=== PATIENT | male | born 2000 | race Caucasian/White ===

== ENCOUNTER 2022-02-16 13:10 | Emergency (ER) | payer MEDICAID, SELFPAY ==
[2022-02-16 13:16] VITALS: BP 133/67; PULSE 62; RESP 20; TEMP 37.2; O2SAT 100
[2022-02-16] MEDS: Fluorescein STRIPS 100/BOX 1 MG (13:59)
[2022-02-16] MEDS: Balanced Salt Solution 15 ML BTL (13:59)
[2022-02-16] MEDS: Tetracaine 0.5% 4 ML BTL (14:00)
--- NOTE | 2022-02-16 14:06 | ED.GENADUL_ITS ---
Discharge Plan Disposition Patient Disposition: HOME Condition: Stable Discharge Details Clinical Impression: Corneal abrasion, left, Foreign body of left eye Primary Care Provider: Unknown,Unknown ED Provider: Janette Avilez Home Meds and New Rx's Prescriptions: Continued dextroamphetamine-amphetamine [Adderall XR] 25 mg capsule,extended release 24hr 25 mg PO QAM MDD 25 Qty: 30 0RF dextroamphetamine-amphetamine [Adderall] 5 mg tablet 5 mg PO DAILY MDD 5 Qty: 30 0RF Discharge Instructions Instructions: Corneal Abrasion (ED) Additional Instructions: A small foreign body was removed from your left eye. A corneal abrasion was not ed in your left eye at the site where your foreign body was removed. You are being sent home with erythromycin ointment to apply to your left eye 4 times daily for the next 5-7 days. Follow-up with [facility] for reevaluation in the next 1-2 weeks. Return immediately to the emergency department if you develop any worsening or new concerning symptoms. Referrals: [facility] [Outside] Discharge Data Discharge Date/Time-TO BE ENTERED AT DEPARTURE: 02/16/22 14:19 Discharge Physician: Janette Avilez Medical Decision Making 21-year-old male presents with foreign body sensation and blurry vision in the left eye after a piece of metal got into his eye at work 3 weeks ago. Patient appears comfortable and nontoxic. He has a 1 mm black speck noted w ithin the cornea of his left eye at approximately 9:00. This was removed with an 18-gauge needle and cotton swab tip and his eye was irrigated with balanced salt solution. Fluorescein staining revealed a corneal abrasion at the site of previous foreign body. Additional inspection of his eye including eyelid eversion negative for obvious foreign body. Erythromycin ointment applied to his left eye. His tetanus is up-to-date. He was advised to follow-up with [facility] for reevaluation. Usual and customary return precautions given prior to discharge. Medical Records Medical records reviewed: Yes I reviewed the patient's medical records. HPI General Mode of arrival: ambulatory . Date/Time Provider Initiated Documentation: 02/16/22 13:12 . Limitations to Documentation: no limitations . Information obtained by: patient . HPI Narrative: Patient is a 21-year-old male who presents with foreign body sensation and blurry vision in the left eye for the past 3 weeks. Patient states he works got a piece of metal in his eye at work 3 weeks ago. He states he has days where it does not bother him as much but states it has been worse since this morning. He does not wear contacts. He states his tetanus is up-to-date. Related Data Home Medications Medication Instructions Recorded Confirmed dextroamphetamine-amphetamine 5 mg 5 mg PO DAILY #30 tabs 10/01/21 02/16/22 tablet (Adderall) dextroamphetamine-amphetamine ER 25 mg PO QAM #30 caps 10/01/21 02/16/22 25 mg 24hr capsule,extend release (Adderall XR) Previous Rx's Medication Instructions Recorded dextroamphetamine-amphetamine 5 mg 5 mg PO DAILY #30 tabs 10/01/21 tablet (Adderall) dextroamphetamine-amphetamine ER 25 mg PO QAM #30 caps 10/01/21 25 mg 24hr capsule,extend release (Adderall XR) Allergies Allergy/AdvReac Type Severity Reaction Status Date / Time No Known Allergies Allergy Verified 04/24/21 14:02 General Stated Complaint: EyeProblem LEEANNA: 4 Review of Systems All systems reviewed & are unremarkable except as noted in HPI and below Constitutional Constitutional: Reports as per HPI, Denies chills and Denies fever(s) Eyes Eyes: Reports blurry vision, Reports irritation and Reports other (foreign body sensation) ENT Ears, Nose, Mouth, and Throat: Denies dizziness, Denies sore throat and Denies throat swelling Cardiovascular Cardiovascular: Denies chest pain and Denies dyspnea Respiratory Respiratory: Denies cough and Denies dyspnea Gastrointestinal Gastrointestinal: Denies abdominal pain, Denies diarrhea and Denies vomiting Genitourinary Genitourinary: Denies hematuria and Denies dysuria Musculoskeletal Musculoskeletal: Denies back pain and Denies numbness Integumentary/Breasts Skin/Breast: Denies lesions and Denies rash Neurologic Neurologic: Denies dizziness, Denies localized weakness and Denies numbness Allergic/Immunologic Allergic/Immunologic: Denies throat swelling PFSH All Active Problems (Updated 02/16/22 @ 14:10 by Janette Avilez DO) Corneal abrasion, left (Acute) Foreign body of left eye (Acute) Elevated blood pressure reading (Acute) Healthy adult male (Acute) Headache (Acute) probable migraine iwth vomiting- sleep helps it - occur about once or twice amonth Healthy adolescent (Acute) ADHD (Acute) Cleft lip (Acute) sp surgery Medical History (Updated 02/16/22 @ 14:10 by Janette Avilez DO) Full term Speech delay Surgical History H/O bone graft Bone graft from hip to repair alveolar and roof of mouth History of circumcision History of oral surgery Cleft palate repair Dr. Gilbert FAC 2009 Cleft lip repair infant Revision cleft lip repair 2012 Family History Father Age: 58 Depression Anxiety Asthma Mother Age: 40 Depression Anxiety ADHD Brother Age: 20 ADHD Sister Age: 17 ADHD Social History Smoking/Tobacco Use Status: Never Second Hand Exposure: Yes (Family smokes at home) Smoking risk assessment performed?: Yes Drug use: Socially Substance use type: marijuana Household members: family Pets and animals: Yes Pets and animals: cat(s) and dog(s) Sexually active: No Exam Const General: cooperative, healthy appearing and no acute distress Orientation: alert, awake and oriented x3 HENMT Head: normal to inspection Ears: hearing grossly normal bilaterally and external ears normal Eyes General: appearance normal, both eyes and all related structures Eyes/upper lids images: 1. 1 mm black speck noted within the cornea at approximately 9 o'clock. Fluor escein staining revealed uptake at the site of the foreign body. No additional foreign body noted with full inspection including eyelid eversion. Neck Neck: normal visual inspection Resp Effort & Inspection: normal respiratory effort and able to speak in complete sentences Cardio Rate: regular rate Skin General skin exam: no rashes or lesions noted Neuro General: patient alert, patient awake and patient oriented x3 Motor: muscle tone normal throughout Extrem General: normal to inspection and full ROM Psych Appearance: grossly normal Affect: normal affect Course Vital Signs Vital signs: Vital Signs Temperature 99.0 F 02/16/22 13:16 Pulse 62 02/16/22 13:16 Respiratory Rate 20 02/16/22 13:16 Blood Pressure 133/67 02/16/22 13:16 Pulse Oximetry 100 07/16/22 13:16 Temperature 99.0 F 02/16/22 13:16 Temperature Source Temporal Artery Scan 02/16/22 13:16 Pulse 62 02/16/22 13:16 Respiratory Rate 20 02/16/22 13:16 Respiratory Effort 02/16/22 13:20 Blood Pressure 133/67 02/16/22 13:16 Blood Pressure Position Sitting 02/16/22 13:16 Pulse Oximetry 100 02/16/22 13:16 Oxygen Delivery Method Room Air 02/16/22 13:16 Oxygen Flow Rate 0 02/16/22 13:16 Pain Level 0 02/16/22 13:16
[2022-02-16] MEDS: Erythromycin Ophth Oint 3.5 GM TUBE OU (14:11)
== END 2022-02-16 14:19 | disposition home or self-care (01) ==
PROVIDERS: Emergency Provider Physician Assistant
DX: T15.02XA Foreign body in cornea, left eye, initial encounter (principal); X58.XXXA Exposure to other specified factors, initial encounter
CPT/HCPCS: 65220

== ENCOUNTER 2025-07-24 19:13 | Emergency (ER) | payer MEDICAID, SELFPAY ==
[2025-07-24 19:17] VITALS: BP 132/78; PULSE 70; RESP 16; TEMP 37.1; O2SAT 96
== END 2025-07-24 21:00 ==
DX: Z53.21 Procedure and treatment not carried out due to patient leaving prior to being seen by health care provider (principal)

== ENCOUNTER 2025-07-28 15:45 | Emergency (ER) | payer MEDICAID, SELFPAY ==
[2025-07-28 15:53] VITALS: BP 169/94; PULSE 66; RESP 16; TEMP 37.4; O2SAT 96
--- NOTE | 2025-07-28 16:03 | ED.GENADUL_ITS ---
Discharge Plan Disposition Patient Disposition: Home Condition: Stable Discharge Details Clinical Impression: Dental infection Primary Care Provider: Unknown,Unknown ED Provider: Weston Colmenares Home Meds and New Rx's Prescriptions: New amoxicillin-pot clavulanate 875-125 mg tablet 1 tab PO BID 14 Days Qty: 28 0RF ketorolac 10 mg tablet 10 mg PO QID 5 Days Qty: 20 0RF Rx Instructions: maximum total duration of 5 days from all oral, intranasal, or parenteral formulations chlorhexidine gluconate 0.12 % mouthwash 15 ml mucous membrane BID Qty: 1893 0RF Continued chlorhexidine gluconate 0.12 % mouthwash 15 ml buccal BID Qty: 473 0RF dextroamphetamine-amphetamine [Adderall XR] 25 mg capsule,extended release 24hr 25 mg PO QAM MDD 25 Qty: 30 0RF dextroamphetamine-amphetamine [Adderall] 5 mg tablet 5 mg PO DAILY MDD 5 Qty: 30 0RF Discharge Instructions Instructions: Ketorolac (Systemic), Amoxicillin and Clavulanate, Chlorhexidine Gluconate (Oral), Dental Pain ED Additional Instructions: You were seen in the emergency department for your severe dental decay and likely mild dental infection starting in your gums at the apex of your tooth. I have sent prescriptions for Augmentin as well as a stronger anti-inflammatory medicine called Toradol as well as chlorhexidine mouth rinse to [facility] in [place], you need to take 1000 mg of Tylenol 4 times a day as well, follow-up with a dentist to soon as possible, return for any inability to open close your jaw, excessive drooling, loss of voice. Stand Alone Forms: Portal Information Discharge Data Discharge Date/Time-TO BE ENTERED AT DEPARTURE: 07/28/25 16:28 HPI General Date/Time Provider Initiated Documentation: 07/28/25 16:03 . HPI Narrative: 25 year-old male presents to ED today by POV/ambulating with a chief complaint of left upper tooth pain with poor dentition with upcoming dentist appointment in August with onset of past few days. Quality described as throbbing, no radiation to trismus, vocal changes, drooling, neck pain, difficulty swallowing, fever. Severity is described as moderate. Palliating factors include nothing specific beyond OTCs. Provoking factors include nothing specific. Patient not anticoagulated. Related Data Home Medications ?Medication ?Instructions ?Recorded ?Confirmed dextroamphetamine-amphetamine 5 mg 5 mg PO DAILY #30 t abs 10/01/21 07/24/25 tablet (Adderall) dextroamphetamine-amphetamine ER 25 mg PO QAM #30 caps 10/01/21 07/24/25 25 mg 24hr capsule,extend release (Adderall XR) chlorhexidine gluconate 0.12 % 15 ml buccal BID #473 m L 03/24/25 07/24/25 mouthwash amoxicillin 875 mg-potassium 1 tab PO BID 14 days #28 tabs 07/28/25 clavulanate 125 mg tablet chlorhexidine gluconate 0.12 % 15 ml mucous membrane B ID #[id number] mL 07/28/25 mouthwash ketorolac 10 mg tablet 10 mg PO QID 5 days #20 tabs 07/28/25 Previous Rx's ?Medication ?Instructions ?Recorded dextroamphetamine-amphetamine 5 mg 5 mg PO DAILY #30 t abs 10/01/21 tablet (Adderall) dextroamphetamine-amphetamine ER 25 mg PO QAM #30 caps 10/01/21 25 mg 24hr capsule,extend release (Adderall XR) chlorhexidine gluconate 0.12 % 15 ml buccal BID #473 m L 03/24/25 mouthwash amoxicillin 875 mg-potassium 1 tab PO BID 14 days #28 tabs 07/28/25 clavulanate 125 mg tablet chlorhexidine gluconate 0.12 % 15 ml mucous membrane B ID #[id number] mL 07/28/25 mouthwash ketorolac 10 mg tablet 10 mg PO QID 5 days #20 tabs 07/28/25 Allergies Allergy/AdvReac Type Severity Reaction Status Date / Time No Known Allergies Allergy Verified 07/24/25 19:23 General Stated Complaint: DentalOral LEEANNA: 4 Review of Systems All systems reviewed & are unremarkable except as noted in HPI and below Exam Narrative Exam Narrative: GENERAL APPEARANCE: Well-nourished, non-toxic, awake and alert, atraumatic, mild acute distress. SKIN: Warm, pink, dry, intact, without rashes/lesions/ulcerations. HEAD: Normocephalic, atraumatic, normal hair distribution for gender/age. EYES: Normal conjunctiva, no exudates on lids/lashes. ENT: Nares patent, no circumoral cyanosis, no facial swelling, diffuse severe dental decay entire mouth, no obvious gingival swelling or fluctuant abscess, no trismus, no excessive drooling, managing secretions well no vocal changes NECK: Supple, trachea midline, painless cervical ROM. LUNGS/CHEST: Non-labored respirations, normal A/P diameter, symmetrical expansion, no chest wall deformity HEART (CV/PV): No peripheral edema, no JVD. ABDOMEN: Soft, non-distended, no guarding. MSK: Normal ROM, no swelling/deformity to bilateral UEs or LEs, moving all extremities without weakness, no cyanosis, spine midline without tenderness, normal curvature. NEURO: Mental Status AAOx4 - alert to person, place, time, events No facial droop, no forehead involvement. Motor: No focal weakness Sensory: sensation intact to light touch globally. Gait normal: patient ambulated without ataxia into ED room. PSYCH: euthymic, cooperative, pleasant, appropriate speech Course Vital Signs Vital signs: Vital Signs Temperature 37.4 C 07/28/25 15:53 Pulse 66 07/28/25 15:53 Respiratory Rate 16 07/28/25 15:53 Blood Pressure 169/94 H 07/28/25 15:53 Pulse Oximetry 96 07/28/25 15:53 Temperature 37.4 C 07/28/25 15:53 Temperature Source Tympanic 07/28/25 15:53 Pulse 66 07/28/25 15:53 Respiratory Rate 16 07/28/25 15:53 Blood Pressure 169/94 H 07/28/25 15:53 Blood Pressure Position Sitting 07/28/25 15:53 Pulse Oximetry 96 07/28/25 15:53 Oxygen Delivery Method Room Air 07/28/25 15:53 Oxygen Flow Rate 0 07/28/25 15:53 Pain Level 10 07/28/25 15:53 Medical Decision Making This dictation utilizes [id number] dictation software and may contain unedited grammatical errors. 25 year-old male presents to ED today by POV/ambulating with a chief complaint of left upper tooth pain with poor dentition with upcoming dentist appointment in August with onset of past few days. Quality described as throbbing, no radiation to trismus, vocal changes, drooling, neck pain, difficulty swallowing, fever. Severity is described as moderate. Palliating factors include nothing specific beyond OTCs. Provoking factors include nothing specific. Patients' medical history: History of oral surgery, headaches. Family and social history: Noncontributory. Pertinent exam findings / vital signs include diffuse severe dental decay entire mouth, no obvious gingival swelling or fluctuant abscess, no trismus, no excessive drooling, managing secretions well no vocal changes. Differential / pathologies of concern include dental infection, abscess, not deep space infection. Diagnostic studies of: - None. Interventions of: - Started on Augmentin, chlorhexidine and Rx for Toradol. ED Course/Assessment/Plan: 24-year-old male presents with acute on chronic severe dental decay with acute throbbing dental pain for the past couple days, counseled him that he needs to start antibiotics needs follow-up with dentistry, take Tylenol and Toradol, salt water gargles with warm salt water and chlorhexidine was prescribed, strict return criteria for focal changes trismus, difficulty swallowing neck swelling. Findings not consistent with deep space infection, drainable abscess. Disposition of Dental Infection. Patient verbalized understanding of the plan and return to ED criteria and engaged in shared decision making. Medical Records Medical records reviewed: Yes I reviewed the patient's medical records. PFSH All Active Problems (Updated 07/28/25 @ 16:06 by BIPIN Hernandez) Dental infection (Acute) Elevated blood pressure reading (Acute) Healthy adult male (Acute) Headache (Acute) probable migraine iwth vomiting- sleep helps it - occur about once or twice amonth Healthy adolescent (Acute) ADHD (Acute) Cleft lip (Acute) sp surgery Medical History Speech delay Full term infant Surgical History H/O bone graft Bone graft from hip to repair alveolar and roof of mouth History of oral surgery Cleft palate repair Dr. Gilbert FAC 2009 Cleft lip repair Revision cleft lip repair 2012 History of circumcision Family History Father Age: 62 Depression Anxiety Asthma Mother Age: 44 Depression Anxiety ADHD Brother Age: 24 ADHD Sister Age: 21 ADHD Social History Smoking/Tobacco Use Status: Never Second Hand Exposure: Yes (Family smokes at home) Smoking risk assessment performed?: Yes Alcohol Intake: current Alcohol Intake frequency: holidays/special occasions only Drug use: Daily Substance use type: marijuana Household members: family Housing: apartment Pets and animals: Yes Pets and animals: cat(s) and dog(s) Sexually active: No Do you feel safe at home: Yes Do you feel safe in your relationship?: Yes
[2025-07-28] MEDS: Acetaminophen 500 MG TAB 1000 MG PO (16:17)
[2025-07-28] MEDS: Ketorolac 10 MG TAB PO (16:18)
[2025-07-28] MEDS: Amoxicillin 875/Clav. 125 TAB PO (16:18)
[2025-07-28 16:19] VITALS: BP 180/97; PULSE 64; O2SAT 98
[2025-07-28 16:26] VITALS: BP 180/97; PULSE 64; RESP 16; TEMP 37.4; O2SAT 98
== END 2025-07-28 16:28 | disposition home or self-care (01) ==
PROVIDERS: Emergency Provider Physician Assistant
DX: R68.84 Jaw pain (principal); K04.7 Periapical abscess without sinus
CPT/HCPCS: 99283 ×2